=== PATIENT | female | born 1965 ===

== ENCOUNTER 2016-03-15 14:07 | Outpatient (CLI) | payer BC ==
--- NOTE | 2016-03-15 15:38 | Mammography Report ---
STEREOTACTIC VACUUM ASSISTED BIOPSY WITH CLIP PLACEMENT RIGHT BREAST: 03/15/16 14:07:00 CLINICAL: Asymmetry identified only on the CC view of the mammogram. COMPARISON:03/10/16 FINDINGS: Consent for the procedure was obtained. The previously described asymmetry was targeted with stereotactic guidance. The skin was prepped with Betadine and anesthetized with 1% lidocaine. 2% lidocaine with epinephrine was injected for deeper anesthesia. 8 gauge Mammotome biopsy was performed from a approach through a small dermatotomy. Prefire and post-fire images demonstrated satisfactory positioning of the probe. Samples were obtained around the clock face. A specimen radiograph confirmed satisfactory sampling with removal of at least portions of a questionable mass. A clip was placed at the biopsy site and the placement was confirmed with a radiograph. The probe was removed and hemostasis was achieved with mild pressure. A sterile dressing was applied. The patient tolerated the procedure well and there were no apparent complications. Two view mammogram demonstrated concordant position of the biopsy clip. IMPRESSION: Uncomplicated stereotactic biopsy with clip placement right breast.
--- NOTE | 2016-03-15 15:45 | Mammography Report ---
RIGHT DIGITAL DIAGNOSTIC MAMMOGRAM: 03/15/16 14:07:00 CLINICAL: For clip placement immediately status post ultrasound biopsy. COMPARISON:03/10/16 FINDINGS: A biopsy clip is identified slightly lateral to the nipple and the position is concordant with the previously described asymmetry. IMPRESSION: Concordant clip placement status post stereotactic biopsy. BI-RADS CATEGORY: 4--Suspicious Pathology pending.
== END 2016-03-15 14:08 | disposition home or self-care (01) ==
LOC: SPVWC 14:07
PROVIDERS: ATTEND Surgery
DX: R92.8 Other abnormal and inconclusive findings on diagnostic imaging of breast (principal)
CPT/HCPCS: 19081; A4648; G0206; 88305